=== PATIENT | male | born 1975 | race Caucasian/White ===

== ENCOUNTER 2016-08-17 09:59 | Emergency (ER) | payer SELFPAY ==
[~2016-08-17] VITALS: Ht 190.5 cm; Wt 113.4 kg
[~2016-08-17 09:59] MED LIST: ANAPROX DS550 MG PO; AUGMENTIN 875 M1 TAB PO; BIAXIN500 MG PO; CLARITIN10 MG PO; CLINDAMYCIN HC300 MG PO; HYDROCODONE BIT1 T11 PO; MIDRIN (DURADR1 CAP PO; MOTRIN800 MG PO; PREDNICOT20 MG PO; PROVENTIL0.09 MG/AC IH; TESSALON PERLE200 MG PO; VICODIN 500 MG-1 TAB PO; ZITHROMAX Z PA250 MG PO; ZOFRAN ODT4 MG SL; ZOFRAN4 MG PO
[2016-08-17] MEDS ORDERED: ZANTAC 150150 MG PO (10:07)
[2016-08-17] MEDS ORDERED: NAPROSYN500 MG PO (10:18)
[2016-08-17] MEDS ORDERED: BACTRIM DS 8001 TA1 PO (10:18)
[2016-08-17] MEDS ORDERED: KEFLEX500 M1 PO (10:18)
== END 2016-08-17 10:32 | disposition home or self-care (01) ==
LOC: ED 09:59
DX: L02.01 Cutaneous abscess of face (principal); F17.200 Nicotine dependence, unspecified, uncomplicated; Z90.49 Acquired absence of other specified parts of digestive tract; Z88.5 Allergy status to narcotic agent

== ENCOUNTER 2016-12-10 14:47 | Emergency (ER) | payer SELFPAY ==
[~2016-12-10] VITALS: Ht 190.5 cm; Wt 120.2 kg
[~2016-12-10 14:47] MED LIST changes: +BACTRIM DS 8001 TA1 PO; +KEFLEX500 M1 PO; +NAPROSYN500 MG PO; +ZANTAC 150150 MG PO
[2016-12-10] MEDS ORDERED: NAPROSYN500 MG PO (15:08)
== END 2016-12-10 16:28 | disposition home or self-care (01) ==
LOC: ED 14:47
DX: S93.601A Unspecified sprain of right foot, initial encounter (principal); R03.0 Elevated blood-pressure reading, without diagnosis of hypertension; F17.200 Nicotine dependence, unspecified, uncomplicated; Z90.49 Acquired absence of other specified parts of digestive tract; Z88.6 Allergy status to analgesic agent; X50.9XXA Other and unspecified overexertion or strenuous movements or postures, initial encounter; Y93.89 Activity, other specified; Y92.9 Unspecified place or not applicable; Y99.9 Unspecified external cause status

== ENCOUNTER 2017-07-30 21:59 | Inpatient (IN) | payer SELFPAY ==
[~2017-07-30] VITALS: Ht 190.5 cm; Wt 108.0 kg
--- NOTE | ~2017-07-30 | PR ---
[place], [place] PROGRESS NOTE NAME: RADHA OWENS [facility] #: [id number] UNIT #: [id number] ROOM: 403 DOCTOR: DORIAN ZHANG MD,ALY BIRTHDATE: [birth year] DOS: 08/01/2017 PULMONARY FOLLOWUP SUBJECTIVE: He has been noted with reduction in shortness of breath, that was noted significantly yesterday. He was still requiring high flow of oxygen supplementation nasal cannula. Denies symptoms of chest pain. Cough has been noted moderate without any sputum expectoration. Denies symptoms of hemoptysis. The patient denies edema or pain in the lower extremities. His appetite was fair. Denies diplopia. Remaining systems were reviewed, they were noted all negative. OBJECTIVE: VITAL SIGNS: The temperature was noted as low grade 99 degree Fahrenheit, normal temperature, respiratory rate 19-20, heart rate 85-83, blood pressure 131/67 to 134/70. Pulse oxygen saturation on 6 liters nasal cannula today was noted as 96%. HEENT: Head, atraumatic. Eyes, nonicterus. NECK: Supple. CARDIOVASCULAR: S1, S2 is audible. LUNGS: Still noted with scattered crackles of the lungs bilaterally with moderate decreased breath sounds, expiratory wheezing and expiratory crackles in the lungs, mostly in the mid and upper portion of the lungs. ABDOMEN: Soft with mild to moderate obesity. Bowel sounds present without any tenderness. EXTREMITIES: Noted without any acute edema, clubbing or cyanosis visible. SKIN: No lesions or rashes. MUSCULOSKELETAL: No acute deformities. CENTRAL NERVOUS SYSTEM: Cranial nerves 2-12 intact. No focal deficit. LABORATORY DATA: CBC today: WBC count 15.2, hemoglobin 13.2, hematocrit 39.3, platelet count was normal. The CMP for the patient this morning, glucose 143, BUN 60, and creatinine was normal. The remaining LFTs for the patient normal arterial blood gas that I ordered yesterday on 10 liter nasal cannula. He was noted with pH of 7.43, pCO2 of 27.8, and pO2 of 76. IMPRESSION: 1. The patient with severe acute hypoxic respiratory failure. The patient with acute exacerbation of chronic obstructive pulmonary disease. 2. Nodular opacities noted in the lungs for the patient bilaterally as well. 3. History of chronic nicotine dependence. 4. Hyponatremia for this patient resolved. PLAN OF TREATMENT: Continue Zithromax and the Rocephin. Titrate oxygen supplementation, maintain saturation 92% or greater. The patient would not require the BiPAP treatment at this time. The respiratory status has been improving. Monitor results of urine for Legionella antigen and strep antigen. Gradual reduction of the oxygen based on the improvement will be continued. Supportive therapy, other plan of management and care. [place], [place] PROGRESS NOTE NAME: OWENSRADHA Tea UNIT #: [id number] ROOM: [facility] DOCTOR: ALY CAMPBELL MD BIRTHDATE: [birth year] ALY ALARCON MD CM:CARMEN [id number] ALY ZHANG MD 08/01/17 1305 interface
--- NOTE | ~2017-07-30 | PR ---
[place], [place] PROGRESS NOTE NAME: RADHA OWENS [facility] #: [id number] UNIT #: [id number] ROOM: 401 DOCTOR: DORIAN ZHANG MD,ALY BIRTHDATE: [birth year] DOS: 08/02/2017 SUBJECTIVE: The patient was noted comfortable at this time. He stated he has hemoptysis which occurred last night once. Denies symptoms of chest pain or hemoptysis. Denies any abdominal pain. The patient denies symptoms of hematemesis or melena. No dizziness or headache. Still noted symptoms of shortness of breath as well. Remaining systems were reviewed. They were noted all negative. OBJECTIVE: VITAL SIGNS: Normal temperature, respiratory rate 20, heart rate 97, blood pressure 146/68, 137/68. Pulse oxygen saturation on 4 liters nasal cannula 93-95% saturation. HEENT: Examination shows head was atraumatic. Eyes nonicterus. NECK: Supple. CARDIOVASCULAR: S1, S2 is audible. LUNGS: The patient was noted without any wheezing or crackles at the present time. Breaths are noted mildly decreased bilaterally. ABDOMEN: Soft and nontender. EXTREMITIES: No edema, clubbing, or cyanosis. SKIN: No lesions or rashes. MUSCULOSKELETAL: Without any acute deformities. CENTRAL NERVOUS SYSTEM: Intact. LABORATORY DATA: The cultures of the sputum noted normal miranda from 11th of this month. Gram stain shows moderate gram-positive cocci in chains and clusters with few gram-negative bacilli. BMP: The patient's glucose of 162, BUN and creatinine were normal. CBC: The patient's hemoglobin 12.9 and hematocrit 39.5. Chest x-ray was ordered this morning. The patient was reviewed showed bilateral nodular infiltration or patchy pneumonia. Interstitial marking also appeared to be increased. The finding appears the same as previously. IMPRESSION: 1. The patient was being currently noted with findings of hemoptysis. The patient also noted with acute pneumonia. 2. Persistent recurrent acute respiratory symptom of acute pneumonia as well. Etiology of hemoptysis at this time is not clear. The hemoptysis may be resulting from underlying pneumonia for the patient of other etiologies. PLAN OF MANAGEMENT: Order the workup of interstitial lung disease including for vasculitis. Plan for bronchoscopy tomorrow morning for the patient. Positive TB Gold test as well. The patient will be ordered with serology. [place], [place] PROGRESS NOTE NAME: RADHA OWENS UNIT #: [id number] ROOM: 401 DOCTOR: ALY CAMPBELL MD BIRTHDATE: [birth year] ALY ALARCON MD CM:PNTRANS [id number] ALY ZHANG MD 08/02/17 1652 interface
--- NOTE | ~2017-07-30 | EKG ---
[place], [place] ELECTROCARDIOGRAM REPORT NAME: RADHA OWENS UNIT #: [id number] ROOM: 403 DOCTOR: DORIAN ZHANG MD,ALY BIRTHDATE: [birth year] DOS: 07/31/2017 ELECTROCARDIOGRAM TIME: 04:25 a.m. Electrocardiogram shows heart rate of 61 beats per minute. No abnormality noted on the electrocardiogram. ALY ALARCON MD CM:EKGRPT:ELECTROCARDIOGRAM REPORT 1435 1445 ALY ZHANG MD
--- NOTE | ~2017-07-30 | EKG ---
[place], [place] ELECTROCARDIOGRAM REPORT NAME: RADHA OWENS UNIT #: [id number] ROOM: 403 DOCTOR: DORIAN ZHANG MD,ALY BIRTHDATE: [birth year] DOS: 07/31/2017 ELECTROCARDIOGRAM TIME: 12:57 a.m. Normal sinus rhythm were noted with 84 beats per minute. Prolonged QTC interval was noted greater than 500. Correlate with the patient use of medication with the etiology of prolonged QTC interval. ALY ALARCON MD CM:EKGRPT:ELECTROCARDIOGRAM REPORT 1434 1443 ALY ZHANG MD
--- NOTE | ~2017-07-30 | PR ---
[place], [place] PROGRESS NOTE NAME: RADHA OWENS UNIT #: [id number] ROOM: 401 DOCTOR: DORIAN ZHANG MD,ALY BIRTHDATE: [birth year] DOS: 08/03/2017 SUBJECTIVE: The patient was noted comfortable at this time without any acute distress, still noted symptoms of shortness of breath and noted with tachypnea, nonproductive cough, preop for bronchoscopy, noted n.p.o. General weakness, fatigue was reported. Denies any abdominal pain, hematemesis, melena, hematochezia. Some dizziness reported. Remaining systems were reviewed. They were noted all negative. PHYSICAL EXAMINATION: VITAL SIGNS: Normal temperature, respiratory rate of 18, heart rate 95-67, blood pressure 123/80-132/85. The pulse oxygen saturation on 4 liter nasal cannula high flow was 96% saturation. HEENT: Moderate obesity. Head was atraumatic. Eyes nonicterus. NECK: Supple. CARDIOVASCULAR: S1, S2 audible in the lung with scattered crackles in the lung were noted bilaterally. ABDOMEN: Soft with moderate obesity. No tenderness. EXTREMITIES: No edema. SKIN: No lesions or rashes. MUSCULOSKELETAL: Without any acute deformities. CENTRAL NERVOUS SYSTEM: Cranial nerves 2-12 intact. LABORATORY DATA: CBC this morning, hemoglobin 11.9, hematocrit 35.6, WBC count normal, platelet count normal with 17% lymphocytes and 72% segmented neutrophils. BMP this morning, glucose 100, BUN normal, creatinine was normal. IMPRESSION: 1. Bilateral nodular infiltration of the lung for the patient, which are noted, preop for the bronchoscopy at this time. 2. The patient with acute hypoxic respiratory failure. 3. History of nicotine abuse. Plan of therapy. Continue current antibiotic. The patient previously ordered. He has a workup of interstitial lung disease and nodule was ordered, which will be reviewed once available. The ESR was noted at 33 and C-reactive protein 3.32. The culture of the sputum spontaneous noted light growth of yeast. Any adjustment and medication necessary will be done after bronchoscopy. No change at this time and antibiotic regimen will be necessary. Continue oxygen supplementation, bronchodilators as well. [place], [place] PROGRESS NOTE NAME: RADHA OWENS UNIT #: [id number] ROOM: 401 DOCTOR: ALY CAMPBELL MD BIRTHDATE: [birth year] ALY ALARCON MD CM:PNTRANS [id number] ALY ZHANG MD 08/03/17 1549 interface
--- NOTE | ~2017-07-30 | PROC NOTE ---
[place], [place] PROCEDURE NOTE [facility] [id number] UNIT #: [id number] ROOM: 401 DOCTOR: DORIAN ZHANG MD,ALY BIRTHDATE: [birth year] DOS: 08/03/2017 BRONCHOSCOPY NOTE PREOPERATIVE DIAGNOSIS: Bilateral nodules with infiltration in the lungs. The patient with multiple antibiotic treatments at this time, undetermined etiology. POSTOPERATIVE DIAGNOSIS: Bilateral nodules with infiltration in the lungs. The patient with multiple antibiotic treatments at this time, undetermined etiology. PROCEDURE DESCRIPTION: Informed consent obtained for the patient. The patient was brought to the OR and placed in supine position. Conscious sedation was administered by the Anesthesia Department. After achieving proper sedation, the patient's airway introduced into the mouth. Bronchoscope advanced to the airway into the laryngeal area. Epiglottis and vocal cords were seen. The bronchoscope advanced to the airway into the laryngeal area. Epiglottis was seen. There were yellowish in color, was moving symmetrically with movements. Bronchoscope advanced to the trachea, noted small amount of secretions suctioned out nesha level. Right upper, right middle, right lower, left upper, lingular lower bronchi were all examined. All the secretions suctioned out. The bronchial washing sent for all the necessary culture for this patient. Procedure well tolerated by the patient. Postoperative finding will be discussed with the patient once the patient recovers the effects of acute sedation. ALY ALARCON MD CM:PROCNOTE:PROCEDURE NOTE 1230 1603 ALY ZHANG MD
--- NOTE | ~2017-07-30 | CON ---
[place], [place] REPORT OF CONSULTATION [id number] UNIT #: [id number] ROOM: 403 DOCTOR: ALY CAMPBELL MD BIRTHDATE: [birth year] DOS: 07/31/2017 REQUESTING PHYSICIAN: Hospitalist Service. REASON FOR CONSULTATION: COPD exacerbation. HISTORY OF PRESENT ILLNESS: This is a 42-year-old white male patient, who was admitted under hospitalist service this morning. The patient reported symptoms of having increased shortness of breath started last . The symptoms had been noted gradually progressive and also noted with the symptoms of coughing associated with that which are noted [id number]. Sputum expectoration was noted minimum or none. The patient does complain of symptoms of chest tightness with that and wheezing as well. He denies any symptoms of abdominal pain. The patient denies symptoms of chest trauma. Denies any known past pulmonary disorder. REVIEW OF SYSTEMS: CONSTITUTIONAL SYMPTOMS: He does complain of significant weakness and fatigue for this patient that occurred with the current illness. He denies any symptoms of fever or chills. EYES: He denies any burning, redness, dryness, or diplopia. EARS, NOSE, THROAT: No sore throat, hoarseness, otalgia, postnasal drainage or epistaxis or any earache. CARDIOVASCULAR: The patient was denying any symptoms of anginal pain, palpitations, or edema of the lower extremity. GASTROINTESTINAL: The patient has one large vomiting, but denies any aspiration. Denies any symptoms of nausea or vomiting at this time at the time of the assessment. Denies any abdominal pain, hematemesis, melena, hematochezia, or dysphagia. Denies abnormal weight loss history. GENITOURINARY: No dysuria, suprapubic pain, or hematuria. SKIN: Denies any lesions or rashes. MUSCULOSKELETAL: The patient denies any symptoms of joint pain, redness, or tenderness. SKIN: Denies any abnormal lesions or rashes. GENITOURINARY: The patient stated when he vomited, he almost passed out, but denies complete loss of consciousness. There was no history of seizures. Denies any diplopia. Remaining systems were reviewed, they were noted all negative. PAST MEDICAL HISTORY: 1. History of diverticulosis. 2. Gastroesophageal reflux. 3. Chronic nicotine dependence. PAST SURGICAL HISTORY: 1. Appendectomy. 2. Tonsillectomy. SOCIAL HISTORY: The patient stated he is not , lives at home, currently [place], [place] REPORT OF CONSULTATION NAME: RADHA OWENS UNIT #: [id number] ROOM: 403 DOCTOR: ALY CAMPBELL MD BIRTHDATE: [birth year] engaged. Tobacco use was noted from the age of [age] years old age and smoking 1-1/2 pack of cigarettes daily. The patient also drinks liquor every month as well. FAMILY HISTORY: The patient's father with history of stroke and myocardial infarction. Mother known with history of aneurysm. HOME MEDICATIONS: Listed as the ranitidine. DRUG ALLERGIES: No known drug allergies. PHYSICAL EXAMINATION: GENERAL: A 42-year-old male, who has been noted ill looking, mild resting tachypnea at the time of the assessment. The patient was noted awake and alert and not confused. Height of 6 feet, 2 inches, reported weight of 238 pounds, BMI 29.3. VITAL SIGNS: The temperature noted at 102.9 degree Fahrenheit on admission, later on noted with gradual reduction of temperature to 99 degree Fahrenheit. Respiratory rate 18-12. Heart rate 69-71. The blood pressure 123/75-131/70. The pulse oxygen saturation on 3 liters nasal cannula was 90-94% saturation. HEENT: Head was atraumatic. Eyes nonicterus. NECK: Supple. CARDIOVASCULAR: S1 and S2 was audible. No added sounds. LUNGS: The patient was noted with general reduction in the breath sounds and the lungs noted with scattered crackles and expiratory wheezing moderately. ABDOMEN: Soft, flat, nontender. Bowel sounds present. No tenderness. EXTREMITIES: The patient was not noted with any edema, clubbing, or cyanosis finding. VISIBLE SKIN: No lesions or rashes. MUSCULOSKELETAL: Without any acute deformities. 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 No focal deficit. LABORATORY DATA: CBC of the patient on 07/30/2017, WBC count 11.1 with normal hemoglobin, hematocrit, and platelets. The PT and PTT yesterday noted normal. Lactic acid 1.3. Influenza A and B and nasal washing antigen negative. CMP for the patient that was done this morning shows glucose 171, BUN normal, creatinine was normal, and sodium 130. PT and PTT was noted as normal. CBC again today noted essentially same finding. WBC count 11.7. Review of the chest x-ray one-view does not show any acute pulmonary infiltration. The patient had a CT scan of the chest that was done without contrast on 07/30/2017 was personally reviewed shows evidence of patches of ground glass opacities noted in the lungs mostly in the upper lungs as well as in the right middle lobe. Evidence of some emphysema changes also seen. IMPRESSION: 1. The patient who has been currently admitted to the hospital noted with findings of current ground glass opacities in the lung, appeared to be ill looking patient, mild tachypnea at rest, suspected for acute viral or bacterial pneumonia is the likely cause. 2. History of chronic nicotine abuse. [place], [place] REPORT OF CONSULTATION NAME: RADHA OWENS UNIT #: [id number] ROOM: 403 DOCTOR: ALY CAMPBELL MD BIRTHDATE: [birth year] 3. New onset of acute exacerbation of chronic obstructive pulmonary disease as well. 4. Hyponatremia most likely related to current acute pneumonia. The differential of the current problem would be considered as a bacterial or viral pneumonia. The patient's other etiology, known infection to be considered as well. 5. History of chronic nicotine dependence. PLAN OF TREATMENT: Agree with the continued use of corticosteroid dose. Antibiotic to be continued Zithromax and Rocephin without any changes consideration at this time. Order arterial blood gas to assess the patient current tachypnea for this patient and consider use of the BiPAP only if necessary in case of worsening of the symptoms. The patient will be continued on the bronchodilators as previously ordered. Urine for Legionella antigen and strep antigen will be ordered. Addition of changes in the treatment will be done for the patient based on progression of the illness. ALY ALARCON MD CM:CONSTR:REPORT OF CONSULTATION 1336 07/31/17 1554 interface
--- NOTE | ~2017-07-30 | EKG ---
[place], [place] ELECTROCARDIOGRAM REPORT NAME: RADHA OWENS UNIT #: [id number] ROOM: 403 DOCTOR: DORIAN ZHANG MD,ALY BIRTHDATE: [birth year] DOS: 07/30/2017 The electrocardiogram was done on 07/30/2017 for the patient at 10:01 p.m. Normal sinus rhythm, 98 beats per minute were noted. Nonspecific ST-T changes were noted. ALY ALARCON MD CM:EKGRPT:ELECTROCARDIOGRAM REPORT 1432 1508 ALY ZHANG MD
--- NOTE | ~2017-07-30 | PR ---
[place], [place] PROGRESS NOTE [id number] UNIT #: [id number] ROOM: 401 DOCTOR: DORIAN ZHANG MD,ALY BIRTHDATE: [birth year] DOS: 08/04/2017 SUBJECTIVE: The patient noted comfortable at this time, doing much better. The shortness of breath and the patient's coughing has improved significantly on this patient after bronchoscopy yesterday. The coughing has been noted significantly improved. Shortness of breath was improved as well. PHYSICAL EXAMINATION: VITAL SIGNS: Normal temperature, respiratory rate 18, heart rate 71, blood pressure 129/73. The pulse oxygen saturation on 2 liters nasal cannula 94% saturation. HEENT: No acute change. NECK: Supple. CARDIOVASCULAR: S1, S2 audible. LUNGS: Noted without any wheeze or crackles at this time. ABDOMEN: Soft, nontender. LABORATORY DATA: CBC today: WBC count was normal, hemoglobin 12.8, hematocrit 37.5. Urine for strep pneumonia and legionella antigen both noted as negative. Culture of the bronchial washing preliminary showed normal miranda. The Gram stain showed moderate white blood cells without any organisms. The chest x-ray of the patient that was done for the patient was reviewed for the patient does not show any acute new abnormality with improvement in aeration of the lung with improvement in the interstitial and other infiltration. IMPRESSION: Stable respiratory status was noted at the present time with improving acute bilateral pneumonia, interstitial lung disease needs to be excluded for further outpatient followup. PLAN OF THERAPY: The patient could be considered for home discharge today and followup visit for the patient will be scheduled as an outpatient. Tapering dose of prednisone and oral antibiotics will be prescribed. ALY ALARCON MD CM:PNTRANS 1141 07 ALY ZHANG MD 08/04/172205 interface
[2017-07-30 22:06] VITALS: BP 131/80
[2017-07-30 22:27] LABS: BASO % 0.1 % (0.0-1.0); HEMATOCRIT 45.3 % (42.0-52.0); HEMOGLOBIN 15.7 g/dl (14.0-18.0); LYMPH # 0.7 10*3/uL (1.3-4.4); LYMPH % 5.9 % (27.0-41.0); MEAN CELL VOLUME 87.6 fl (80.0-94.0); MEAN CORPUSCULAR HGB 30.4 pg (27.0-31.0); MEAN CORPUSCULAR HGB CONC 34.7 g/dl (33.0-37.0); MEAN PLATELET VOLUME 10.4 fl (9.6-12.3); MONO # 1.4 10*3/uL (0.1-1.0); MONO % 12.5 % (3.0-9.0); NEUT % 81.2 % (47.0-73.0); PLATELET COUNT AUTOMATED 189 10*3/uL (130-400); RED BLOOD COUNT 5.17 10*6/uL (4.50-5.90); RED CELL DISTRI WIDTH 13.3 % (0-14.5); WHITE BLOOD COUNT 11.1 10*3/uL (4.8-10.8)
[2017-07-30 22:30] VITALS: BP 134/76
[2017-07-30 22:37] LABS: ACT PARTIAL THROMBO TIME 25.1 SECONDS (20.8-31.5)
[2017-07-30 22:45] LABS: ALBUMIN 3.9 gm/dl (3.1-4.5); ALKALINE PHOSPHATASE 71 U/L (45-117); BUN 15 mg/dl (7-24); CHLORIDE 94 mmol/L (98-107); CREATININE 1.38 mg/dL (0.70-1.30); POTASSIUM 3.4 mmol/L (3.5-5.1); SGOT/AST 33 IU/L (3-35); SGPT/ALT 43 U/L (12-78); SODIUM 127 mmol/L (136-145); TOTAL PROTEIN 8.3 gm/dL (6.4-8.2)
[2017-07-30 23:00] VITALS: BP 132/70
[2017-07-30 23:09] LABS: TROPONIN I < 0.015 ng/ml (<0.045)
[2017-07-31] VITALS (7 sets, daily range): BP systolic 121–135; BP diastolic 69–87
[2017-07-31 05:13] LABS: ALBUMIN 3.3 gm/dl (3.1-4.5); BUN 17 mg/dl (7-24); CHLORIDE 99 mmol/L (98-107); CHOLESTEROL 95 mg/dL (<200); CREATININE 1.29 mg/dL (0.70-1.30); PHOSPHOROUS 4.6 mg/dL (2.5-4.9); POTASSIUM 3.7 mmol/L (3.5-5.1); SGOT/AST 27 IU/L (3-35); SGPT/ALT 35 U/L (12-78); SODIUM 130 mmol/L (136-145); TOTAL PROTEIN 7.6 gm/dL (6.4-8.2); TRIGLYCERIDES 53 mg/dl (<150); VLDL CHOLESTEROL 11 mg/dL (6-40)
[2017-07-31 05:20] LABS: ALKALINE PHOSPHATASE 63 U/L (45-117); FREE T4 0.75 ng/dl (0.76-1.46); HDL CHOLESTEROL 33 mg/dl (40-60); LDL CHOLESTEROL 51 mg/dL (9-159); THYROID STIM HORMONE (HS) 0.079 uIU/ml (0.358-4.75)
[2017-07-31 05:45] LABS: ACT PARTIAL THROMBO TIME 25.5 SECONDS (20.8-31.5)
[2017-07-31 05:56] LABS: BASO % 0.2 % (0.0-1.0); HEMATOCRIT 42.5 % (42.0-52.0); HEMOGLOBIN 14.8 g/dl (14.0-18.0); LYMPH # 0.5 10*3/uL (1.3-4.4); LYMPH % 4.4 % (27.0-41.0); MEAN CELL VOLUME 89.9 fl (80.0-94.0); MEAN CORPUSCULAR HGB 31.3 pg (27.0-31.0); MEAN CORPUSCULAR HGB CONC 34.8 g/dl (33.0-37.0); MEAN PLATELET VOLUME 11.1 fl (9.6-12.3); MONO # 0.7 10*3/uL (0.1-1.0); MONO % 5.9 % (3.0-9.0); NEUT # 10.4 10*3/uL (2.3-7.9); NEUT % 89.1 % (47.0-73.0); PLATELET COUNT AUTOMATED 174 10*3/uL (130-400); RED BLOOD COUNT 4.73 10*6/uL (4.50-5.90); RED CELL DISTRI WIDTH 13.7 % (0-14.5); WHITE BLOOD COUNT 11.7 10*3/uL (4.8-10.8)
[2017-07-31 07:48] LABS: VITAMIN D, 25-HYDROXY 10.5 ng/mL (30-100)
[2017-07-31 08:12] LABS: BILIRUBIN NEGATIVE (NEGATIVE); BLOOD TRACE-INTACT (NEGATIVE); CLARITY CLEAR (CLEAR); COLOR STRAW (YELLOW); GLUCOSE NEGATIVE (NEGATIVE); KETONE NEGATIVE (NEGATIVE); LEUKO ESTERASE NEGATIVE (NEGATIVE); NITRITE NEGATIVE (NEGATIVE); SPECIFIC GRAVITY <= 1.005 (1.005-1.030); UROBILINOGEN 0.2 E.U./dl (0.2-1.0)
[2017-07-31 08:30] LABS: EPITHELIAL CELLS 0-2; WBC 0-2 wbc/hpf (0-5)
[2017-07-31 14:04] LABS: ABG BASE EXCESS -4.2 mmol/L (-2.0-2.0); ABG HCO3 18.4 mmol/l (22-26); ABG O2 SATURATION 95.5 % (95-97); ARTERIAL BLOOD GAS PCO2 27.8 mmHg (35-45); ARTERIAL BLOOD GAS PH 7.434 (7.35-7.45); ARTERIAL BLOOD GAS PO2 76.6 mmHg (80-90)
[2017-08-01] VITALS (8 sets, daily range): BP systolic 99–134; BP diastolic 52–76
[2017-08-01 06:49] LABS: BASO % 0.1 % (0.0-1.0); HEMATOCRIT 39.3 % (42.0-52.0); HEMOGLOBIN 13.2 g/dl (14.0-18.0); LYMPH # 0.7 10*3/uL (1.3-4.4); LYMPH % 4.9 % (27.0-41.0); MEAN CELL VOLUME 90.8 fl (80.0-94.0); MEAN CORPUSCULAR HGB 30.5 pg (27.0-31.0); MEAN CORPUSCULAR HGB CONC 33.6 g/dl (33.0-37.0); MEAN PLATELET VOLUME 10.7 fl (9.6-12.3); MONO # 1.1 10*3/uL (0.1-1.0); MONO % 7.2 % (3.0-9.0); NEUT # 13.2 10*3/uL (2.3-7.9); NEUT % 86.7 % (47.0-73.0); PLATELET COUNT AUTOMATED 165 10*3/uL (130-400); RED BLOOD COUNT 4.33 10*6/uL (4.50-5.90); RED CELL DISTRI WIDTH 13.9 % (0-14.5); WHITE BLOOD COUNT 15.2 10*3/uL (4.8-10.8)
[2017-08-01 07:06] LABS: ALBUMIN 2.8 gm/dl (3.1-4.5); ALKALINE PHOSPHATASE 50 U/L (45-117); BUN 16 mg/dl (7-24); CHLORIDE 108 mmol/L (98-107); CREATININE 0.91 mg/dL (0.70-1.30); PHOSPHOROUS 2.8 mg/dL (2.5-4.9); SGOT/AST 22 IU/L (3-35); SGPT/ALT 26 U/L (12-78); SODIUM 138 mmol/L (136-145); TOTAL PROTEIN 6.7 gm/dL (6.4-8.2)
[2017-08-01 07:25] LABS: POTASSIUM 4.7 mmol/L (3.5-5.1)
[2017-08-02] VITALS: BP 137/68
[2017-08-02 05:55] LABS: BASO % 0.1 % (0.0-1.0); HEMATOCRIT 39.5 % (42.0-52.0); HEMOGLOBIN 12.9 g/dl (14.0-18.0); LYMPH # 0.6 10*3/uL (1.3-4.4); LYMPH % 6.5 % (27.0-41.0); MEAN CELL VOLUME 93.8 fl (80.0-94.0); MEAN CORPUSCULAR HGB 30.6 pg (27.0-31.0); MEAN CORPUSCULAR HGB CONC 32.7 g/dl (33.0-37.0); MEAN PLATELET VOLUME 11.3 fl (9.6-12.3); MONO # 0.3 10*3/uL (0.1-1.0); MONO % 3.8 % (3.0-9.0); NEUT % 88.9 % (47.0-73.0); PLATELET COUNT AUTOMATED 172 10*3/uL (130-400); RED BLOOD COUNT 4.21 10*6/uL (4.50-5.90); RED CELL DISTRI WIDTH 14.2 % (0-14.5)
[2017-08-02 06:00] LABS: BUN 14 mg/dl (7-24); CHLORIDE 103 mmol/L (98-107); CREATININE 0.86 mg/dL (0.70-1.30); PHOSPHOROUS 2.9 mg/dL (2.5-4.9); POTASSIUM 4.8 mmol/L (3.5-5.1); SODIUM 138 mmol/L (136-145)
[2017-08-02 08:00] VITALS: BP 146/68
[2017-08-02 12:00] VITALS: BP 132/70
[2017-08-02 16:00] VITALS: BP 121/58
[2017-08-02 20:00] VITALS: BP 129/64
[2017-08-03] VITALS (9 sets, daily range): BP systolic 123–165; BP diastolic 57–90
[2017-08-03 07:13] LABS: HEMATOCRIT 35.6 % (42.0-52.0); HEMOGLOBIN 11.9 g/dl (14.0-18.0); MEAN CELL VOLUME 93.2 fl (80.0-94.0); MEAN CORPUSCULAR HGB 31.2 pg (27.0-31.0); MEAN CORPUSCULAR HGB CONC 33.4 g/dl (33.0-37.0); PLATELET COUNT AUTOMATED 179 10*3/uL (130-400); RED BLOOD COUNT 3.82 10*6/uL (4.50-5.90); RED CELL DISTRI WIDTH 13.9 % (0-14.5); WHITE BLOOD COUNT 10.2 10*3/uL (4.8-10.8)
[2017-08-03 07:34] LABS: BUN 15 mg/dl (7-24); CHLORIDE 105 mmol/L (98-107); CREATININE 0.75 mg/dL (0.70-1.30); SODIUM 139 mmol/L (136-145)
[2017-08-03 07:42] LABS: ATYPICAL LYMPHS 5 % (0-0); PLATELET SUFFICIENCY NORMAL (NORMAL); TOTAL CELLS COUNTED 100 #CELLS
[2017-08-03 08:11] LABS: IMMUNOGLOBULIN M, QNT 77 mg/dL (20-172); RHEUMATOID ARTHRITIS FACTOR 26.1 IU/mL (0.0-13.9)
[2017-08-03 14:08] LABS: ALDOLASE 002030 7.2 U/L (3.3-10.3); ANGIOTENSIN-CONVERTING ENZYME 31 U/L (14-82)
[2017-08-03 15:10] LABS: ATYPICAL PANCA <1:20 titer (Neg:<1:20); CYTOPLASMIC (C-ANCA) <1:20 titer (Neg:<1:20)
[2017-08-04] VITALS: BP 133/75
[2017-08-04 01:03] LABS: IGG SUBCLASS 1 736 mg/dL (248-810); IGG SUBCLASS 2 120 mg/dL (130-555); IGG SUBCLASS 3 36 mg/dL (15-102); IGG SUBCLASS 4 13 mg/dL (2-96); IMMUNOGLOBULIN G, QNT 921 mg/dL (700-1600)
[2017-08-04 06:29] LABS: HEMATOCRIT 37.5 % (42.0-52.0); HEMOGLOBIN 12.8 g/dl (14.0-18.0); MEAN CELL VOLUME 92.1 fl (80.0-94.0); MEAN CORPUSCULAR HGB 31.4 pg (27.0-31.0); MEAN CORPUSCULAR HGB CONC 34.1 g/dl (33.0-37.0); MEAN PLATELET VOLUME 10.7 fl (9.6-12.3); PLATELET COUNT AUTOMATED 228 10*3/uL (130-400); RED BLOOD COUNT 4.07 10*6/uL (4.50-5.90); RED CELL DISTRI WIDTH 13.4 % (0-14.5); WHITE BLOOD COUNT 9.2 10*3/uL (4.8-10.8)
[2017-08-04 06:43] LABS: BUN 15 mg/dl (7-24); CHLORIDE 102 mmol/L (98-107); CREATININE 0.82 mg/dL (0.70-1.30); POTASSIUM 4.2 mmol/L (3.5-5.1); SODIUM 136 mmol/L (136-145)
[2017-08-04 07:00] LABS: PLATELET SUFFICIENCY NORMAL (NORMAL); TOTAL CELLS COUNTED 100 #CELLS
[2017-08-04 08:00] VITALS: BP 129/73
[2017-08-04] MEDS ORDERED: Oscal,Oyster S500 MG PO (11:53)
[2017-08-04] MEDS ORDERED: PREDNISONE10 MG PO (11:53)
[2017-08-04] MEDS ORDERED: DOXYCYCLINE100 M3 PO (11:53)
[2017-08-04] MEDS ORDERED: VITAMIN D-32000 UNIT PO (11:53)
[2017-08-04] MEDS ORDERED: OMEPRAZOLE D/R20 MG PO (11:53)
[2017-08-04 15:06] LABS: CRYPTOCOCCUS ANTIGEN Negative (Negative)
[2017-08-04 15:06] LABS: ACID FAST SPEC PROCESSING Concentration (.)
[2017-08-04 22:05] LABS: MITOGEN VALUE 2.37 IU/mL (.); TB Ag VALUE 0.01 IU/mL (.); TB GOLD Negative (Negative)
[2017-08-05 22:04] LABS: IMMUNOGLOBULIN IgE 002170 67 IU/mL (0-100)
== END 2017-08-04 13:35 | disposition home or self-care (01) | DRG 193 ==
LOC: ED 21:59 → 4E 07-31 00:21 → EDHOLD 07-31 00:21 → 4E 07-31 00:29
PROVIDERS: Family Medicine; Internal Medicine; Internal Medicine Critical Care Medicine; Internal Medicine Nephrology; Nurse Practitioner
PROC: 0DJ08ZZ Inspection of Upper Intestinal Tract, Via Natural or Artificial Opening Endoscopic (ICD-10-PCS; principal; 2017-08-01)
PROC: 0B948ZZ Drainage of Right Upper Lobe Bronchus, Via Natural or Artificial Opening Endoscopic (ICD-10-PCS; 2017-08-03)
PROC: 0B988ZZ Drainage of Left Upper Lobe Bronchus, Via Natural or Artificial Opening Endoscopic (ICD-10-PCS; 2017-08-03)
PROC: 0B978ZZ Drainage of Left Main Bronchus, Via Natural or Artificial Opening Endoscopic (ICD-10-PCS; 2017-08-03)
PROC: 0B9B8ZZ Drainage of Left Lower Lobe Bronchus, Via Natural or Artificial Opening Endoscopic (ICD-10-PCS; 2017-08-03)
PROC: 0B938ZZ Drainage of Right Main Bronchus, Via Natural or Artificial Opening Endoscopic (ICD-10-PCS; 2017-08-03)
PROC: 0B918ZZ Drainage of Trachea, Via Natural or Artificial Opening Endoscopic (ICD-10-PCS; 2017-08-03)
PROC: 0B958ZZ Drainage of Right Middle Lobe Bronchus, Via Natural or Artificial Opening Endoscopic (ICD-10-PCS; 2017-08-03)
PROC: 0B968ZZ Drainage of Right Lower Lobe Bronchus, Via Natural or Artificial Opening Endoscopic (ICD-10-PCS; 2017-08-03)
PROC: 0B998ZZ Drainage of Lingula Bronchus, Via Natural or Artificial Opening Endoscopic (ICD-10-PCS; 2017-08-03)
DX: J18.9 Pneumonia, unspecified organism (principal); J96.01 Acute respiratory failure with hypoxia; J21.9 Acute bronchiolitis, unspecified; E44.1 Mild protein-calorie malnutrition; E87.1 Hypo-osmolality and hyponatremia; R04.2 Hemoptysis; J44.1 Chronic obstructive pulmonary disease with (acute) exacerbation; Z71.6 Tobacco abuse counseling; E83.41 Hypermagnesemia; E83.51 Hypocalcemia; K21.9 Gastro-esophageal reflux disease without esophagitis; F17.210 Nicotine dependence, cigarettes, uncomplicated; E55.9 Vitamin D deficiency, unspecified; R31.29 Other microscopic hematuria; F10.10 Alcohol abuse, uncomplicated; K57.90 Diverticulosis of intestine, part unspecified, without perforation or abscess without bleeding; K44.9 Diaphragmatic hernia without obstruction or gangrene; K29.50 Unspecified chronic gastritis without bleeding; K20.9 Esophagitis, unspecified; Z88.8 Allergy status to other drugs, medicaments and biological substances; Z79.899 Other long term (current) drug therapy; Z90.49 Acquired absence of other specified parts of digestive tract; Z90.89 Acquired absence of other organs; Z82.3 Family history of stroke; Z68.29 Body mass index [BMI] 29.0-29.9, adult

== ENCOUNTER 2018-11-25 15:45 | Emergency (ER) | payer SELFPAY ==
[~2018-11-25] VITALS: Ht 190.5 cm; Wt 113.4 kg
[~2018-11-25 15:45] MED LIST changes: +CEPHALEXIN500 M1 PO; +DOXYCYCLINE100 M3 PO; +OMEPRAZOLE D/R20 MG PO; +Oscal,Oyster S500 MG PO; +PREDNISONE10 MG PO; +SEPTDS PO; +VITAMIN D-32000 UNIT PO
[2018-11-25 16:36] LABS: BASO % 0.5 % (0.0-1.0); EOS # 0.2 10*3/uL (0.0-0.4); EOS % 2.8 % (1.0-4.0); HEMATOCRIT 42.9 % (42.0-52.0); HEMOGLOBIN 14.1 g/dl (14.0-18.0); LYMPH # 1.8 10*3/uL (1.3-4.4); LYMPH % 23.1 % (27.0-41.0); MEAN CELL VOLUME 92.9 fl (80.0-94.0); MEAN CORPUSCULAR HGB 30.5 pg (27.0-31.0); MEAN CORPUSCULAR HGB CONC 32.9 g/dl (33.0-37.0); MEAN PLATELET VOLUME 10.4 fl (9.6-12.3); MONO # 0.8 10*3/uL (0.1-1.0); MONO % 10.5 % (3.0-9.0); NEUT # 4.8 10*3/uL (2.3-7.9); NEUT % 62.8 % (47.0-73.0); PLATELET COUNT AUTOMATED 252 10*3/uL (130-400); RED BLOOD COUNT 4.62 10*6/uL (4.50-5.90); RED CELL DISTRI WIDTH 12.8 % (0-14.5); WHITE BLOOD COUNT 7.6 10*3/uL (4.8-10.8)
[2018-11-25 16:48] LABS: ALBUMIN 3.5 gm/dl (3.1-4.5); ALKALINE PHOSPHATASE 88 U/L (45-117); BUN 17 mg/dl (7-24); CHLORIDE 106 mmol/L (98-107); CREATININE 1.09 mg/dL (0.70-1.30); LIPASE 94 U/L (73-393); POTASSIUM 3.7 mmol/L (3.5-5.1); SGOT/AST 18 IU/L (3-35); SGPT/ALT 37 U/L (12-78); SODIUM 140 mmol/L (136-145); TOTAL PROTEIN 7.5 gm/dL (6.4-8.2)
[2018-11-25 16:49] LABS: TROPONIN I < 0.015 ng/ml (<0.045)
[2018-11-25] MEDS ORDERED: DOXYCYCLINE100 M3 PO (17:41)
== END 2018-11-25 17:47 | disposition home or self-care (01) ==
LOC: ED 15:45
PROVIDERS: Nurse Practitioner Family
DX: L02.213 Cutaneous abscess of chest wall (principal); F17.210 Nicotine dependence, cigarettes, uncomplicated; Z79.2 Long term (current) use of antibiotics; Z90.49 Acquired absence of other specified parts of digestive tract

== ENCOUNTER 2019-01-23 08:21 | Emergency (ER) | payer SELFPAY ==
[~2019-01-23] VITALS: Ht 187.9 cm; Wt 107.0 kg
[2019-01-23 08:55] LABS: BASO # 0.1 10*3/uL (0.0-0.1); BASO % 0.6 % (0.0-1.0); EOS # 0.2 10*3/uL (0.0-0.4); EOS % 1.8 % (1.0-4.0); HEMATOCRIT 40.8 % (42.0-52.0); HEMOGLOBIN 13.5 g/dl (14.0-18.0); LYMPH # 1.6 10*3/uL (1.3-4.4); LYMPH % 15.4 % (27.0-41.0); MEAN CELL VOLUME 93.4 fl (80.0-94.0); MEAN CORPUSCULAR HGB 30.9 pg (27.0-31.0); MEAN CORPUSCULAR HGB CONC 33.1 g/dl (33.0-37.0); MEAN PLATELET VOLUME 9.9 fl (9.6-12.3); MONO # 1.2 10*3/uL (0.1-1.0); NEUT # 7.5 10*3/uL (2.3-7.9); NEUT % 70.8 % (47.0-73.0); PLATELET COUNT AUTOMATED 224 10*3/uL (130-400); RED BLOOD COUNT 4.37 10*6/uL (4.50-5.90); WHITE BLOOD COUNT 10.6 10*3/uL (4.8-10.8)
[2019-01-23 09:07] LABS: BUN 12 mg/dl (7-24); CHLORIDE 107 mmol/L (98-107); CREATININE 0.83 mg/dL (0.70-1.30); POTASSIUM 3.7 mmol/L (3.5-5.1); SODIUM 138 mmol/L (136-145)
[2019-01-23] MEDS ORDERED: SEPTDS PO (10:36)
== END 2019-01-23 12:35 | disposition home or self-care (01) ==
LOC: ED 08:21
PROVIDERS: Emergency Medicine
DX: L02.01 Cutaneous abscess of face (principal); K21.9 Gastro-esophageal reflux disease without esophagitis; F17.210 Nicotine dependence, cigarettes, uncomplicated; Z79.2 Long term (current) use of antibiotics; Z90.49 Acquired absence of other specified parts of digestive tract

== ENCOUNTER 2019-04-09 08:31 | Emergency (ER) | payer SELFPAY ==
[~2019-04-09] VITALS: Ht 190.5 cm; Wt 113.4 kg
--- NOTE | ~2019-04-09 | EKG ---
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
[2019-04-09 09:40] LABS: BILIRUBIN 1+ (NEGATIVE); BLOOD NEGATIVE (NEGATIVE); CLARITY SL CLOUDY (CLEAR); COLOR YELLOW (YELLOW); GLUCOSE NEGATIVE (NEGATIVE); KETONE TRACE (NEGATIVE); LEUKO ESTERASE NEGATIVE (NEGATIVE); NITRITE NEGATIVE (NEGATIVE); SPECIFIC GRAVITY >= 1.030 (1.005-1.030); UROBILINOGEN 0.2 E.U./dl (0.2-1.0)
[2019-04-09 09:52] LABS: URINE AMPHETAMINES > 1000 (1000ng/ml); URINE BARBITURATES < 200 (200ng/ml); URINE BENZODIAZEPINES < 200 (200ng/ml); URINE CANNABINOIDS (THC) < 50 (50ng/ml); URINE COCAINE > 300 (300ng/ml); URINE METHADONE < 300 (300ng/ml); URINE OPIATES < 300 (300ng/ml)
[2019-04-09 09:53] LABS: URINE PHENCYCLIDINE < 25 (25ng/ml)
[2019-04-09 10:03] LABS: CALCIUM OXALATE CRYSTALS 3+; MUCOUS TRACE; RBC 0-2 rbc/hpf (0-2)
[2019-04-09 10:18] LABS: BASO # 0.1 10*3/uL (0.0-0.1); BASO % 0.8 % (0.0-1.0); EOS # 0.2 10*3/uL (0.0-0.4); EOS % 2.5 % (1.0-4.0); HEMATOCRIT 40.5 % (42.0-52.0); HEMOGLOBIN 13.6 g/dl (14.0-18.0); LYMPH % 26.9 % (27.0-41.0); MEAN CELL VOLUME 91.4 fl (80.0-94.0); MEAN CORPUSCULAR HGB 30.7 pg (27.0-31.0); MEAN CORPUSCULAR HGB CONC 33.6 g/dl (33.0-37.0); MEAN PLATELET VOLUME 9.6 fl (9.6-12.3); MONO # 0.8 10*3/uL (0.1-1.0); MONO % 10.8 % (3.0-9.0); NEUT # 4.4 10*3/uL (2.3-7.9); NEUT % 58.9 % (47.0-73.0); PLATELET COUNT AUTOMATED 279 10*3/uL (130-400); RED BLOOD COUNT 4.43 10*6/uL (4.50-5.90); WHITE BLOOD COUNT 7.5 10*3/uL (4.8-10.8)
[2019-04-09 10:32] LABS: ALBUMIN 3.7 gm/dl (3.1-4.5); ALKALINE PHOSPHATASE 81 U/L (45-117); BUN 14 mg/dl (7-24); CHLORIDE 110 mmol/L (98-107); CREATININE 1.01 mg/dL (0.70-1.30); POTASSIUM 3.5 mmol/L (3.5-5.1); SGOT/AST 29 IU/L (3-35); SGPT/ALT 36 U/L (12-78); SODIUM 140 mmol/L (136-145); TOTAL PROTEIN 7.4 gm/dL (6.4-8.2)
[2019-04-09 10:35] LABS: ACETAMINOPHEN (TYLENOL) < 5.0 ug/ml (10-30)
[2019-04-09 10:40] LABS: ETHYL ALCOHOL < 3.0 mg/dl (<3); THYROID STIM HORMONE (HS) 0.545 uIU/ml (0.358-4.75)
== END 2019-04-09 11:01 | disposition left against medical advice (07) ==
LOC: ED 08:31
PROVIDERS: Nurse Practitioner
DX: F23 Brief psychotic disorder (principal); F19.20 Other psychoactive substance dependence, uncomplicated; K59.00 Constipation, unspecified; F17.210 Nicotine dependence, cigarettes, uncomplicated; Z79.2 Long term (current) use of antibiotics

== ENCOUNTER 2019-04-11 05:53 | Emergency (ER) | payer SELFPAY ==
[~2019-04-11] VITALS: Ht 190.5 cm; Wt 115.7 kg
== END 2019-04-11 06:25 | disposition left against medical advice (07) ==
LOC: ED 05:53
DX: B83.9 Helminthiasis, unspecified (principal); K21.9 Gastro-esophageal reflux disease without esophagitis; F17.210 Nicotine dependence, cigarettes, uncomplicated

== ENCOUNTER 2019-04-29 11:24 | Emergency (ER) | payer SELFPAY ==
[~2019-04-29] VITALS: Ht 182.8 cm; Wt 79.4 kg
[2019-04-29 12:08] LABS: BASO # 0.1 10*3/uL (0.0-0.1); BASO % 0.6 % (0.0-1.0); EOS # 0.1 10*3/uL (0.0-0.4); EOS % 0.8 % (1.0-4.0); HEMATOCRIT 38.5 % (42.0-52.0); HEMOGLOBIN 13.3 g/dl (14.0-18.0); LYMPH % 18.5 % (27.0-41.0); MEAN CORPUSCULAR HGB 31.1 pg (27.0-31.0); MEAN CORPUSCULAR HGB CONC 34.5 g/dl (33.0-37.0); MEAN PLATELET VOLUME 9.8 fl (9.6-12.3); MONO # 1.1 10*3/uL (0.1-1.0); MONO % 10.3 % (3.0-9.0); NEUT # 7.6 10*3/uL (2.3-7.9); NEUT % 69.6 % (47.0-73.0); PLATELET COUNT AUTOMATED 331 10*3/uL (130-400); RED BLOOD COUNT 4.28 10*6/uL (4.50-5.90); RED CELL DISTRI WIDTH 12.6 % (0-14.5); WHITE BLOOD COUNT 10.9 10*3/uL (4.8-10.8)
[2019-04-29 12:19] LABS: ACT PARTIAL THROMBO TIME 24.8 SECONDS (20.0-32.1); INTERNATIONAL NORM RATIO 0.9 (2.0-3.5)
[2019-04-29 12:21] LABS: ALBUMIN 3.7 gm/dl (3.1-4.5); ALKALINE PHOSPHATASE 102 U/L (45-117); BUN 22 mg/dl (7-24); CHLORIDE 104 mmol/L (98-107); CREATININE 1.39 mg/dL (0.70-1.30); POTASSIUM 3.8 mmol/L (3.5-5.1); SGOT/AST 41 IU/L (3-35); SGPT/ALT 34 U/L (12-78); SODIUM 136 mmol/L (136-145); TOTAL PROTEIN 7.9 gm/dL (6.4-8.2)
[2019-04-29 12:29] LABS: ETHYL ALCOHOL < 3.0 mg/dl (<3); THYROID STIM HORMONE (HS) 0.648 uIU/ml (0.358-4.75)
[2019-04-29] MEDS ORDERED: CLINDAMYCIN HC300 MG PO (12:37)
[2019-04-29] MEDS ORDERED: Bactroban Oint22 GM T (12:41)
== END 2019-04-29 12:38 ==
LOC: ED 11:24
PROVIDERS: Emergency Medicine
DX: L08.9 Local infection of the skin and subcutaneous tissue, unspecified (principal); B96.89 Other specified bacterial agents as the cause of diseases classified elsewhere; R45.1 Restlessness and agitation; R06.02 Shortness of breath; R10.9 Unspecified abdominal pain; R42 Dizziness and giddiness; R63.1 Polydipsia; R79.1 Abnormal coagulation profile; F19.10 Other psychoactive substance abuse, uncomplicated; K21.9 Gastro-esophageal reflux disease without esophagitis; F17.210 Nicotine dependence, cigarettes, uncomplicated; Z02.89 Encounter for other administrative examinations

== ENCOUNTER 2019-12-03 15:25 | Emergency (ER) | payer SELFPAY ==
[~2019-12-03] VITALS: Ht 190.5 cm; Wt 108.9 kg
[~2019-12-03 15:25] MED LIST changes: +Bactroban Oint22 GM T
[2019-12-03 16:15] LABS: BASO # 0.1 10*3/uL (0.0-0.1); BASO % 0.7 % (0.0-1.0); EOS # 0.1 10*3/uL (0.0-0.4); EOS % 2.1 % (1.0-4.0); LYMPH # 1.8 10*3/uL (1.3-4.4); LYMPH % 26.7 % (27.0-41.0); MEAN CELL VOLUME 90.3 fl (80.0-94.0); MEAN CORPUSCULAR HGB 29.7 pg (27.0-31.0); MEAN CORPUSCULAR HGB CONC 32.9 g/dl (33.0-37.0); MONO # 0.8 10*3/uL (0.1-1.0); MONO % 11.4 % (3.0-9.0); PLATELET COUNT AUTOMATED 229 10*3/uL (130-400); RED BLOOD COUNT 4.54 10*6/uL (4.50-5.90); RED CELL DISTRI WIDTH 12.6 % (0-14.5); WHITE BLOOD COUNT 6.8 10*3/uL (4.8-10.8)
[2019-12-03 16:28] LABS: ACT PARTIAL THROMBO TIME 23.6 SECONDS (20.0-32.1); INTERNATIONAL NORM RATIO 0.9 (2.0-3.5)
[2019-12-03 16:33] LABS: ALBUMIN 3.5 gm/dl (3.1-4.5); ALKALINE PHOSPHATASE 90 U/L (45-117); BUN 14 mg/dl (7-24); CHLORIDE 109 mmol/L (98-107); CREATININE 1.18 mg/dL (0.70-1.30); POTASSIUM 4.3 mmol/L (3.5-5.1); SGOT/AST 28 IU/L (3-35); SGPT/ALT 51 U/L (12-78); SODIUM 138 mmol/L (136-145); TOTAL PROTEIN 7.5 gm/dL (6.4-8.2)
[2019-12-03 18:13] LABS: BILIRUBIN NEGATIVE (NEGATIVE); BLOOD NEGATIVE (NEGATIVE); CLARITY SL CLOUDY (CLEAR); COLOR YELLOW (YELLOW); GLUCOSE NEGATIVE (NEGATIVE); KETONE NEGATIVE (NEGATIVE); LEUKO ESTERASE NEGATIVE (NEGATIVE); NITRITE NEGATIVE (NEGATIVE); PH 6.5 (5.0-9.0); SPECIFIC GRAVITY 1.015 (1.005-1.030); UROBILINOGEN 0.2 E.U./dl (0.2-1.0)
[2019-12-03 18:14] LABS: URINE AMPHETAMINES > 1000 (1000ng/ml); URINE BARBITURATES < 200 (200ng/ml); URINE BENZODIAZEPINES < 200 (200ng/ml); URINE CANNABINOIDS (THC) > 50 (50ng/ml); URINE COCAINE > 300 (300ng/ml); URINE METHADONE < 300 (300ng/ml); URINE OPIATES < 300 (300ng/ml)
[2019-12-03 18:16] LABS: URINE PHENCYCLIDINE < 25 (25ng/ml)
[2019-12-03 18:23] LABS: BACTERIA TRACE; MUCOUS 1+
== END 2019-12-03 19:05 | disposition home or self-care (01) ==
LOC: ED 15:25
PROVIDERS: Nurse Practitioner Family
DX: S09.90XA Unspecified injury of head, initial encounter (principal); K21.9 Gastro-esophageal reflux disease without esophagitis; Z79.899 Other long term (current) drug therapy; W19.XXXA Unspecified fall, initial encounter; Y93.89 Activity, other specified; Y92.89 Other specified places as the place of occurrence of the external cause; Y99.8 Other external cause status

== ENCOUNTER 2020-03-18 12:44 | Emergency (ER) | payer SELFPAY ==
[~2020-03-18] VITALS: Ht 190.5 cm; Wt 120.2 kg
[2020-03-18] MEDS ORDERED: NAPROSYN500 MG PO (14:36)
[2020-03-18] MEDS ORDERED: CLINDAMYCIN HC300 MG PO (14:36)
== END 2020-03-18 15:04 | disposition home or self-care (01) ==
LOC: ED 12:44
DX: L02.214 Cutaneous abscess of groin (principal); Z79.899 Other long term (current) drug therapy

== ENCOUNTER 2020-09-06 12:31 | Emergency (ER) | payer OTHER ==
[~2020-09-06] VITALS: Wt 120.2 kg
[2020-09-06] MEDS ORDERED: CYCLOBENZAPRINE5 M3 PO (14:49)
[2020-09-06] MEDS ORDERED: Motrin,Rufen800 MG PO (14:49)
== END 2020-09-06 15:09 | disposition home or self-care (01) ==
LOC: ED 12:31
DX: S39.011A Strain of muscle, fascia and tendon of abdomen, initial encounter (principal); S16.1XXA Strain of muscle, fascia and tendon at neck level, initial encounter; F17.200 Nicotine dependence, unspecified, uncomplicated; Z79.899 Other long term (current) drug therapy; Z90.49 Acquired absence of other specified parts of digestive tract; Z98.890 Other specified postprocedural states; V89.2XXA Person injured in unspecified motor-vehicle accident, traffic, initial encounter; Y93.89 Activity, other specified; Y92.89 Other specified places as the place of occurrence of the external cause; Y99.8 Other external cause status

== ENCOUNTER 2021-10-11 06:57 | Emergency (ER) | payer MEDICAID ==
[~2021-10-11] VITALS: Ht 190.5 cm; Wt 113.4 kg
[~2021-10-11 06:57] MED LIST changes: +CYCLOBENZAPRINE5 M3 PO; +Motrin,Rufen800 MG PO
[2021-10-11] MEDS ORDERED: NAPROXEN250 MG PO (07:42)
[2021-10-11] MEDS ORDERED: TYLENOL325 M1 PO (07:42)
[2021-10-11] MEDS ORDERED: AUGMENTIN 875-875 MG PO (07:42)
== END 2021-10-11 08:00 | disposition home or self-care (01) ==
LOC: ED 06:57
DX: K04.7 Periapical abscess without sinus (principal); K21.9 Gastro-esophageal reflux disease without esophagitis; Z90.89 Acquired absence of other organs; Z90.49 Acquired absence of other specified parts of digestive tract; F17.210 Nicotine dependence, cigarettes, uncomplicated

== ENCOUNTER 2021-11-28 11:58 | Emergency (ER) | payer MEDICAID ==
[~2021-11-28] VITALS: Ht 187.9 cm; Wt 111.1 kg
[~2021-11-28 11:58] MED LIST changes: +AUGMENTIN 875-875 MG PO; +NAPROXEN250 MG PO; +TYLENOL325 M1 PO
[2021-11-28 12:38] LABS: BASO # 0.1 10*3/uL (0.0-0.1); BASO % 0.8 % (0.0-1.0); EOS # 0.1 10*3/uL (0.0-0.4); EOS % 1.5 % (1.0-4.0); HEMATOCRIT 38.6 % (42.0-52.0); LYMPH # 1.3 10*3/uL (1.3-4.4); LYMPH % 20.6 % (27.0-41.0); MEAN CELL VOLUME 89.8 fl (80.0-94.0); MEAN CORPUSCULAR HGB CONC 33.4 g/dl (33.0-37.0); MEAN PLATELET VOLUME 10.2 fl (9.6-12.3); MONO # 0.7 10*3/uL (0.1-1.0); MONO % 10.5 % (3.0-9.0); NEUT # 4.3 10*3/uL (2.3-7.9); NEUT % 66.1 % (47.0-73.0); PLATELET COUNT AUTOMATED 225 10*3/uL (130-400); RED CELL DISTRI WIDTH 12.9 % (0-14.5); WHITE BLOOD COUNT 6.5 10*3/uL (4.8-10.8)
[2021-11-28 12:55] LABS: ALKALINE PHOSPHATASE 81 U/L (45-117); BUN 13 mg/dl (7-24); CHLORIDE 116 mmol/L (98-107); CREATININE 1.04 mg/dL (0.70-1.30); POTASSIUM 3.8 mmol/L (3.5-5.1); SGOT/AST 21 IU/L (3-35); SGPT/ALT 34 U/L (12-78); SODIUM 143 mmol/L (136-145); TOTAL PROTEIN 6.6 gm/dL (6.4-8.2)
== END 2021-11-28 14:57 ==
LOC: ED 11:58
PROVIDERS: Internal Medicine
DX: R07.9 Chest pain, unspecified (principal); Z90.89 Acquired absence of other organs; Z90.49 Acquired absence of other specified parts of digestive tract; Z87.891 Personal history of nicotine dependence

== ENCOUNTER 2024-12-21 14:43 | Emergency (ER) | payer OTHER ==
[~2024-12-21] VITALS: Ht 190.5 cm; Wt 113.4 kg
[2024-12-21 15:56] LABS: BASO # 0.0 10*3/uL (0.0-0.1); BASO % 0.1 % (0.0-1.0); EOS # 0.2 10*3/uL (0.0-0.4); EOS % 2.2 % (1.0-4.0); MEAN CELL VOLUME 92.1 fl (80.0-94.0); MEAN CORPUSCULAR HGB 30.3 pg (27.0-31.0); MEAN PLATELET VOLUME 9.8 fl (9.6-12.3); MONO # 1.0 10*3/uL (0.1-1.0); MONO % 11.2 % (3.0-9.0); NEUT # 6.3 10*3/uL (2.3-7.9); NEUT % 71.3 % (47.0-73.0); NUCLEATED RED BLOOD CELL 0.0 % (0.0-0.0); NUCLEATED RED BLOOD CELL 0.0 10*3/uL (0.0-0.0); PLATELET COUNT AUTOMATED 230 10*3/uL (130-400); RED CELL DISTRI WIDTH 13.1 % (0-14.5)
[2024-12-21 16:17] LABS: BUN 14 mg/dl (9-23)
[2024-12-21] MEDS ORDERED: PREDNISONE20 M1 PO (16:36)
[2024-12-21] MEDS ORDERED: CLOBETASOL PROPIONATE 30 GM TUBE T ONE (16:40)
== END 2024-12-21 17:24 | disposition home or self-care (01) ==
LOC: ED 14:43
PROVIDERS: Nurse Practitioner Family
DX: L40.0 Psoriasis vulgaris (principal); F17.210 Nicotine dependence, cigarettes, uncomplicated; Z04.9 Encounter for examination and observation for unspecified reason; Z90.89 Acquired absence of other organs

== ENCOUNTER 2025-05-03 15:38 | Emergency (ER) | payer OTHER ==
[~2025-05-03] VITALS: Wt 120.2 kg
[~2025-05-03 15:38] MED LIST changes: +PREDNISONE20 M1 PO
[2025-05-03] MEDS ORDERED: PENICILLIN VK500 MG PO (17:03)
[2025-05-03] MEDS ORDERED: PENICILLIN V POTASSIUM 500 MG TAB PO ONE (17:05)
== END 2025-05-03 17:14 | disposition home or self-care (01) ==
LOC: ED 15:38
DX: K04.7 Periapical abscess without sinus (principal); K02.9 Dental caries, unspecified; K21.9 Gastro-esophageal reflux disease without esophagitis; F17.210 Nicotine dependence, cigarettes, uncomplicated; Z79.899 Other long term (current) drug therapy; Z90.49 Acquired absence of other specified parts of digestive tract; Z90.89 Acquired absence of other organs